=== PATIENT | female | born 1935 | race Caucasian/White ===

== ENCOUNTER 2017-04-25 16:17 | Inpatient (IN) ==
[2017-04-25] MEDS ORDERED: MAGNESIUM HYDROXIDE SUSP 30 ML UDCUP PO PRN (16:18)
[2017-04-25] MEDS ORDERED: DEXTROSE 50% 25 GM/50 ML VIAL IV PRN (16:18)
[2017-04-25] MEDS ORDERED: MORPHINE 2 MG/1 ML SYRINGE IV PRN (16:18)
[2017-04-25] MEDS ORDERED: GLUCAGON 1 MG VIAL IM PRN (16:18)
[2017-04-25] MEDS ORDERED: ACETAMINOPHEN 325 MG TABLET PO PRN (16:18)
[2017-04-25] MEDS: ENOXAPARIN 30 MG/0.3 ML SYRINGE SUBCUT SCH (18:24)
[2017-04-25] MEDS: SODIUM CHLORIDE 0.45% 1,000 ML IV SCH (18:26)
[2017-04-25 19:21] LABS: Basophils # 0.1 10*3/uL (0.0-0.2); Basophils % 0.7 % (0.0-0.8); Eosinophils # 0.3 10*3/uL (0.0-0.87); Eosinophils % 2.9 % (0.00-10.9); Hematocrit 27.9 VOL% (35.7-47.0); Hemoglobin 7.6 GM/DL (12.0-16.0); Immature Granulocytes % 0.9 %; Immature Granulocytes Absolute 0.09 #; Lymphocytes # 2.4 10*3/uL (1.4-4.0); Lymphocytes % 23.7 % (21.3-54.2); Mean Corpuscular HGB Conc 27.2 GM/DL (32-36); Mean Corpuscular Hemoglobin 19 PG (27-34); Mean Corpuscular Volume 69.4 FL (87-102); Mean Platelet Volume 9.5 FL (9.6-12.0); Monocytes # 0.8 10*3/uL (0.11-0.8); Monocytes % 7.5 % (1.7-12.7); NRBC # 0.05 10*3/uL; Neutrophils # 6.5 10*3/uL (1.4-7.4); Neutrophils % 64.3 % (38.7-73.9); Platelet Count 426 T/CUMM (130-400); Red Blood Count 4.02 MC/CUMM (3.8-5.5); Red Cell Distribution Width 19.2 % (9.3-17.3); White Blood Count 10.1 T/CUMM (4-12)
[2017-04-25 19:24] LABS: Alanine Aminotransferase < 9 U/L (13-56); Albumin 3.8 G/DL (3.4-5.0); Alkaline Phosphatase 181 U/L (45-117); Aspartate Amino Transferase 13 U/L (0-37); Blood Urea Nitrogen 33 MG/DL (7-18); Calcium 9.8 MG/DL (8.5-10.1); Glucose 132 MG/DL (74-106); Osmolality,Calculated 287.4 MOS/KG (273-304); Potassium 3.6 MMOL/L (3.5-5.1); Sodium 140 MMOL/L (136-145); Total Protein 6.8 G/DL (6.4-8.3)
[2017-04-25 19:44] LABS: Hypochromasia 3+; Microcytosis 3+; Platelet Estimate Normal; Tear Drop Cells Few
[2017-04-25] MEDS: DOCUSATE SODIUM 100 MG CAPSULE PO SCH (20:46)
[2017-04-26] MEDS: ONDANSETRON 4 MG/2 ML VIAL IV PRN (00:19)
[2017-04-26 01:08] LABS: Apearance,Urine Slightly Hazy (Clear); Bacteria,Urine Few /HPF (Few); Bilirubin,Urine Negative (Negative); Blood, Urine Negative (Negative); Glucose,Urine (UA) >=500 mg/dL (Negative); Hyaline Casts,Urine 2 /LPF (0-3); Ketones,Urine 5 mg/dL (Negative); Mucus,Urine Occasional /LPF (Occasional); Nitrite,Urine Positive (Negative); Protein,Urine Negative; RBC,Urine 1 /HPF (0-4); Squamous Epithelial Cell,Urine Occasional /HPF (0-10); Urine Color Yellow (Yellow); Urine Specific Gravity 1.014 (1.001-1.035); Urine Urobilinogen < 2.0 EU/DL (0.2-1.0); WBC,Urine 11 /HPF (0-6)
[2017-04-26] MEDS: clonazePAM 0.5 MG TABLET PO SCH ×2 (08:47→21:46)
[2017-04-26] MEDS: CARBIDOPA/LEVODOPA 25-100 MG TABLET PO SCH ×3 (08:47→21:31)
[2017-04-26] MEDS: FEBUXOSTAT 80 MG TABLET PO SCH (08:47)
[2017-04-26] MEDS: PANTOPRAZOLE 40 MG TABLET PO SCH (08:47)
[2017-04-26] MEDS: tiZANidine 4 MG TABLET PO SCH ×3 (08:47→21:31)
[2017-04-26] MEDS: RASAGILINE 0.5 MG TABLET PO SCH (08:47)
[2017-04-26] MEDS: DILTIAZEM CD 180 MG CAPSULE PO SCH (08:48)
[2017-04-26] MEDS: DOCUSATE SODIUM 100 MG CAPSULE PO SCH ×2 (08:50→21:31)
[2017-04-26] MEDS: FUROSEMIDE 20 MG TABLET PO SCH (08:51)
[2017-04-26] MEDS: LOSARTAN 50 MG TABLET PO SCH (08:52)
[2017-04-26] MEDS: rOPINIRole 0.25 MG TABLET PO SCH ×3 (08:52→21:31)
[2017-04-26] MEDS: SELENIUM 200 MCG TABLET PO SCH (08:52)
[2017-04-26] MEDS: sitaGLIPtin 25 MG TABLET PO SCH (08:52)
[2017-04-26] MEDS: ESCITALOPRAM 10 MG TABLET PO SCH (08:54)
[2017-04-26] MEDS ORDERED: NON-FORMULARY MEDICATION (Omeprazole [Omeprazole] 20 MG) PO SCH (09:00)
[2017-04-26 10:10] LABS: Folate 13.6 NG/ML (5.4-24.0)
[2017-04-26] MEDS ORDERED: ceFAZolin 2,000 MG in PREMIX 1 EACH IV ONE (12:00)
[2017-04-26] MEDS ORDERED: DEXAMETHASONE 10 MG/1 ML VIAL ONE (13:58)
[2017-04-26] MEDS ORDERED: TISSUE ADHESIVE 1 EACH APPLICATOR TOP ONE (13:58)
[2017-04-26] MEDS ORDERED: LIDOCAINE 1% 5 ML VIAL ONE (13:58)
[2017-04-26] MEDS ORDERED: DEXAMETHASONE 4 MG/1 ML VIAL ONE (13:59)
[2017-04-26] MEDS: SODIUM CHLORIDE 0.45% 1,000 ML IV SCH (14:27)
[2017-04-26] MEDS: LACTATED RINGERS 1,000 ML IV SCH ×2 (16:25→20:00)
[2017-04-26] MEDS ORDERED: ceFAZolin 1,000 MG VIAL ONE (16:36)
[2017-04-26] MEDS ORDERED: ONDANSETRON 4 MG/2 ML VIAL IV PRN (17:18)
[2017-04-26] MEDS ORDERED: HYDROmorphone 2 MG/1 ML VIAL IV PRN (17:18)
[2017-04-26] MEDS ORDERED: fentaNYL 100 MCG/2 ML VIAL ONE (18:13)
[2017-04-26] MEDS ORDERED: PROPOFOL 200 MG/20 ML VIAL IV ONE (18:13)
[2017-04-26] MEDS: ATORVASTATIN 40 MG TABLET PO SCH (21:31)
[2017-04-26] MEDS: ENOXAPARIN 30 MG/0.3 ML SYRINGE SUBCUT SCH (21:33)
[2017-04-27 06:58] LABS: Basophils % 0.5 % (0.0-0.8); Eosinophils # 0.5 10*3/uL (0.0-0.87); Eosinophils % 5.9 % (0.00-10.9); Hematocrit 25.4 VOL% (35.7-47.0); Immature Granulocytes % 0.7 %; Immature Granulocytes Absolute 0.06 #; Lymphocytes # 1.3 10*3/uL (1.4-4.0); Lymphocytes % 14.7 % (21.3-54.2); Mean Corpuscular HGB Conc 26.8 GM/DL (32-36); Mean Corpuscular Hemoglobin 18 PG (27-34); Mean Corpuscular Volume 68.6 FL (87-102); Mean Platelet Volume 9.7 FL (9.6-12.0); Monocytes # 0.5 10*3/uL (0.11-0.8); Monocytes % 6.1 % (1.7-12.7); NRBC # 0.03 10*3/uL; Neutrophils # 6.4 10*3/uL (1.4-7.4); Neutrophils % 72.1 % (38.7-73.9); Platelet Count 354 T/CUMM (130-400); Red Cell Distribution Width 19.1 % (9.3-17.3); White Blood Count 8.9 T/CUMM (4-12)
[2017-04-27 07:01] LABS: Hemoglobin 6.8 GM/DL (12.0-16.0)
[2017-04-27 07:16] LABS: Giant Platelets Few; Hypochromasia 1+; Microcytosis Slight; Ovalocytes Slight; Platelet Estimate Adequate
[2017-04-27] MEDS: clonazePAM 0.5 MG TABLET PO SCH ×2 (10:17→21:12)
[2017-04-27] MEDS: LOSARTAN 50 MG TABLET PO SCH (10:17)
[2017-04-27] MEDS: sitaGLIPtin 25 MG TABLET PO SCH (10:17)
[2017-04-27] MEDS: ESCITALOPRAM 10 MG TABLET PO SCH (10:17)
[2017-04-27] MEDS: DILTIAZEM CD 180 MG CAPSULE PO SCH (10:17)
[2017-04-27] MEDS: DOCUSATE SODIUM 100 MG CAPSULE PO SCH ×2 (10:17→21:12)
[2017-04-27] MEDS: RASAGILINE 0.5 MG TABLET PO SCH (10:17)
[2017-04-27] MEDS: FUROSEMIDE 20 MG TABLET PO SCH (10:17)
[2017-04-27] MEDS: FEBUXOSTAT 80 MG TABLET PO SCH (10:18)
[2017-04-27] MEDS: tiZANidine 4 MG TABLET PO SCH ×3 (10:18→21:12)
[2017-04-27] MEDS: PANTOPRAZOLE 40 MG TABLET PO SCH (10:18)
[2017-04-27] MEDS: CARBIDOPA/LEVODOPA 25-100 MG TABLET PO SCH ×3 (10:18→21:13)
[2017-04-27] MEDS: rOPINIRole 0.25 MG TABLET PO SCH ×3 (10:18→21:19)
[2017-04-27] MEDS: SELENIUM 200 MCG TABLET PO SCH (10:18)
[2017-04-27] MEDS: SODIUM CHLORIDE 0.45% 1,000 ML IV SCH (10:19)
[2017-04-27] MEDS ORDERED: SODIUM CHLORIDE 0.9% 1,000 ML IV PRN (15:25)
[2017-04-27] MEDS ORDERED: CYANOCOBALAMIN 1000 MCG/1 ML VIAL IM ONE (15:31)
[2017-04-27] MEDS: methylPREDNISolone SOD SUC 40 MG/1 ML VIAL IV SCH (17:04)
[2017-04-27] MEDS: ATORVASTATIN 40 MG TABLET PO SCH (21:12)
[2017-04-27] MEDS: ENOXAPARIN 30 MG/0.3 ML SYRINGE SUBCUT SCH (21:12)
[2017-04-27] MEDS: ONDANSETRON 4 MG/2 ML VIAL IV PRN (23:06)
[2017-04-28] MEDS: methylPREDNISolone SOD SUC 40 MG/1 ML VIAL IV SCH ×2 (04:15→15:21)
[2017-04-28 08:54] LABS: Hematocrit 35.1 VOL% (35.7-47.0)
[2017-04-28 08:55] LABS: Basophils % 0.2 % (0.0-0.8); Hematocrit 34.5 VOL% (35.7-47.0); Immature Granulocytes % 0.9 %; Immature Granulocytes Absolute 0.09 #; Lymphocytes # 0.9 10*3/uL (1.4-4.0); Lymphocytes % 9.4 % (21.3-54.2); Mean Corpuscular HGB Conc 29.9 GM/DL (32-36); Mean Corpuscular Hemoglobin 21 PG (27-34); Mean Corpuscular Volume 71.4 FL (87-102); Mean Platelet Volume 9.6 FL (9.6-12.0); Monocytes # 0.2 10*3/uL (0.11-0.8); Monocytes % 1.7 % (1.7-12.7); Neutrophils # 8.6 10*3/uL (1.4-7.4); Neutrophils % 87.8 % (38.7-73.9); Platelet Count 406 T/CUMM (130-400); Red Blood Count 4.83 MC/CUMM (3.8-5.5); Red Cell Distribution Width 21.4 % (9.3-17.3); White Blood Count 9.8 T/CUMM (4-12)
[2017-04-28] MEDS: SELENIUM 200 MCG TABLET PO SCH (08:56)
[2017-04-28] MEDS: FEBUXOSTAT 80 MG TABLET PO SCH (08:56)
[2017-04-28] MEDS: RASAGILINE 0.5 MG TABLET PO SCH (08:56)
[2017-04-28] MEDS: CARBIDOPA/LEVODOPA 25-100 MG TABLET PO SCH ×3 (08:57→21:40)
[2017-04-28] MEDS: DOCUSATE SODIUM 100 MG CAPSULE PO SCH ×2 (08:57→21:40)
[2017-04-28] MEDS: FUROSEMIDE 20 MG TABLET PO SCH (08:58)
[2017-04-28] MEDS: sitaGLIPtin 25 MG TABLET PO SCH (08:58)
[2017-04-28] MEDS: ESCITALOPRAM 10 MG TABLET PO SCH (08:58)
[2017-04-28] MEDS: DILTIAZEM CD 180 MG CAPSULE PO SCH (08:58)
[2017-04-28] MEDS: rOPINIRole 0.25 MG TABLET PO SCH ×3 (08:58→21:40)
[2017-04-28] MEDS: FERROUS SULFATE 325 MG TABLET PO SCH (08:58)
[2017-04-28] MEDS: PANTOPRAZOLE 40 MG TABLET PO SCH (08:59)
[2017-04-28] MEDS: clonazePAM 0.5 MG TABLET PO SCH ×2 (08:59→21:40)
[2017-04-28] MEDS: tiZANidine 4 MG TABLET PO SCH ×3 (09:00→21:40)
[2017-04-28 09:04] LABS: Calcium 9.6 MG/DL (8.5-10.1); Osmolality,Calculated 292.4 MOS/KG (273-304); Potassium 4.7 MMOL/L (3.5-5.1)
[2017-04-28] MEDS: SODIUM CHLORIDE 0.45% 1,000 ML IV SCH (09:05)
[2017-04-28 09:07] LABS: Hemoglobin 10.1 GM/DL (12.0-16.0); Hemoglobin 10.3 GM/DL (12.0-16.0)
[2017-04-28] MEDS: ATORVASTATIN 40 MG TABLET PO SCH (21:40)
[2017-04-28] MEDS: ENOXAPARIN 30 MG/0.3 ML SYRINGE SUBCUT SCH (21:41)
[2017-04-29] MEDS: SODIUM CHLORIDE 0.45% 1,000 ML IV SCH ×2 (01:40→21:53)
[2017-04-29] MEDS: cefTRIAXone 500 MG in SYRINGE 1 EACH IV SCH (01:40)
[2017-04-29] MEDS: methylPREDNISolone SOD SUC 40 MG/1 ML VIAL IV SCH (04:20)
[2017-04-29 06:03] LABS: Basophils % 0.1 % (0.0-0.8); Hematocrit 37.1 VOL% (35.7-47.0); Hemoglobin 10.7 GM/DL (12.0-16.0); Immature Granulocytes % 1.1 %; Immature Granulocytes Absolute 0.23 #; Lymphocytes # 1.8 10*3/uL (1.4-4.0); Lymphocytes % 8.3 % (21.3-54.2); Mean Corpuscular HGB Conc 28.8 GM/DL (32-36); Mean Corpuscular Hemoglobin 21 PG (27-34); Mean Corpuscular Volume 72.3 FL (87-102); Mean Platelet Volume 9.6 FL (9.6-12.0); Monocytes # 0.6 10*3/uL (0.11-0.8); NRBC # 0.03 10*3/uL; Neutrophils # 18.6 10*3/uL (1.4-7.4); Neutrophils % 87.5 % (38.7-73.9); Platelet Count 496 T/CUMM (130-400); Red Blood Count 5.13 MC/CUMM (3.8-5.5); Red Cell Distribution Width 22.2 % (9.3-17.3); White Blood Count 21.3 T/CUMM (4-12)
[2017-04-29 06:26] LABS: Lymphocytes 12 % (20-55); Macrocytosis 2+; Platelet Estimate Adequate; Polychromasia Slight; Segmented Neutrophils 88 % (50-85); Target Cells Slight; Total Cells Counted 100
[2017-04-29 06:28] LABS: Calcium 10.6 MG/DL (8.5-10.1); Osmolality,Calculated 287.5 MOS/KG (273-304); Potassium 4.6 MMOL/L (3.5-5.1)
[2017-04-29] MEDS ORDERED: PROPOFOL 200 MG/20 ML VIAL IV ONE (09:00)
[2017-04-29] MEDS ORDERED: LIDOCAINE 100 MG/5 ML SYRINGE ONE (09:00)
[2017-04-29] MEDS: DILTIAZEM CD 180 MG CAPSULE PO SCH (10:43)
[2017-04-29] MEDS: RASAGILINE 0.5 MG TABLET PO SCH (10:43)
[2017-04-29] MEDS: DOCUSATE SODIUM 100 MG CAPSULE PO SCH ×2 (10:44→21:45)
[2017-04-29] MEDS: FERROUS SULFATE 325 MG TABLET PO SCH (10:44)
[2017-04-29] MEDS: PANTOPRAZOLE 40 MG TABLET PO SCH ×2 (10:44→21:46)
[2017-04-29] MEDS: ESCITALOPRAM 10 MG TABLET PO SCH (10:44)
[2017-04-29] MEDS: sitaGLIPtin 25 MG TABLET PO SCH (10:44)
[2017-04-29] MEDS: FUROSEMIDE 20 MG TABLET PO SCH (10:44)
[2017-04-29] MEDS: clonazePAM 0.5 MG TABLET PO SCH ×2 (10:44→21:46)
[2017-04-29] MEDS: rOPINIRole 0.25 MG TABLET PO SCH ×3 (10:45→21:44)
[2017-04-29] MEDS: tiZANidine 4 MG TABLET PO SCH ×3 (10:45→21:44)
[2017-04-29] MEDS: SELENIUM 200 MCG TABLET PO SCH (10:45)
[2017-04-29] MEDS: CARBIDOPA/LEVODOPA 25-100 MG TABLET PO SCH ×3 (10:45→21:44)
[2017-04-29] MEDS: FEBUXOSTAT 80 MG TABLET PO SCH (10:45)
[2017-04-29] MEDS ORDERED: TUBERCULIN SKIN TEST 0.1 ML SYRINGE INTRADERM ONE (12:00)
[2017-04-29] MEDS: ENOXAPARIN 30 MG/0.3 ML SYRINGE SUBCUT SCH (21:47)
[2017-04-29] MEDS: ATORVASTATIN 40 MG TABLET PO SCH (21:47)
[2017-04-30] MEDS: cefTRIAXone 500 MG in SYRINGE 1 EACH IV SCH (01:48)
[2017-04-30] MEDS ORDERED: GLUCAGON 1 MG VIAL IM PRN (07:34)
[2017-04-30] MEDS ORDERED: DEXTROSE 50% 25 GM/50 ML VIAL IV PRN (07:34)
[2017-04-30 08:26] VITALS: BP 160/98
[2017-04-30] MEDS: rOPINIRole 0.25 MG TABLET PO SCH (08:42)
[2017-04-30] MEDS: tiZANidine 4 MG TABLET PO SCH (08:42)
[2017-04-30] MEDS: FUROSEMIDE 20 MG TABLET PO SCH (08:42)
[2017-04-30] MEDS: CARBIDOPA/LEVODOPA 25-100 MG TABLET PO SCH (08:42)
[2017-04-30] MEDS: clonazePAM 0.5 MG TABLET PO SCH (08:42)
[2017-04-30] MEDS: RASAGILINE 0.5 MG TABLET PO SCH (08:44)
[2017-04-30] MEDS: FEBUXOSTAT 80 MG TABLET PO SCH (08:45)
[2017-04-30] MEDS: DOCUSATE SODIUM 100 MG CAPSULE PO SCH (08:45)
[2017-04-30] MEDS: PANTOPRAZOLE 40 MG TABLET PO SCH (08:45)
[2017-04-30] MEDS: FERROUS SULFATE 325 MG TABLET PO SCH (08:45)
[2017-04-30] MEDS: ESCITALOPRAM 10 MG TABLET PO SCH (08:47)
[2017-04-30] MEDS: sitaGLIPtin 25 MG TABLET PO SCH (08:47)
[2017-04-30] MEDS: SELENIUM 200 MCG TABLET PO SCH (08:48)
[2017-04-30] MEDS: DILTIAZEM CD 180 MG CAPSULE PO SCH (08:48)
[2017-04-30] MEDS ORDERED: ENOXAPARIN 40 MG/0.4 ML SYRINGE SUBCUT SCH (21:00)
== END 2017-04-30 12:00 | DRG 516 ==
LOC: N.2E 17:59
PROVIDERS: ADMIT Family Medicine; ATTEND Family Medicine

== ENCOUNTER 2020-04-03 19:30 | Inpatient (IN) ==
[2020-04-03] MEDS ORDERED: SODIUM CHLORIDE 0.9% 500 ML IV STA (19:55)
[2020-04-03] MEDS ORDERED: ALUM/MAG/SIMETH/LIDO VISC 1:1 30 ML BOTTLE PO STA (19:55)
[2020-04-03] MEDS ORDERED: ONDANSETRON 4 MG/2 ML VIAL IV STA (19:55)
[2020-04-03] MEDS ORDERED: ASPIRIN 325 MG TABLET PO STA (19:55)
[2020-04-03] MEDS ORDERED: VANCOMYCIN INJ 1,000 MG in SODIUM CHLORIDE 0.9% 250 ML IV STA (20:12)
[2020-04-03 20:40] LABS: Basophils % 0.4 % (0.0-0.8); Eosinophils % 0.4 % (0.00-10.9); Hematocrit 41.6 VOL% (35.7-47.0); Immature Granulocytes % 0.5 %; Immature Granulocytes Absolute 0.03 #; Lymphocytes # 1.4 10*3/uL (1.4-4.0); Lymphocytes % 24.4 % (21.3-54.2); Mean Corpuscular HGB Conc 33.7 GM/DL (32-36); Monocytes % 9.3 % (1.7-12.7); Platelet Count 173 T/CUMM (130-400); Red Blood Count 4.78 MC/CUMM (3.8-5.5); Red Cell Distribution Width 14.6 % (9.3-17.3); White Blood Count 5.6 T/CUMM (4-12)
[2020-04-03 20:52] LABS: PT Patient Result 10.8 SECS (9.8-11.9)
[2020-04-03 21:07] LABS: Albumin 3.6 G/DL (3.4-5.0); Bilirubin,Total 0.6 MG/DL (0.2-1.0); Ferritin 856.8 ng/ml (8-252); Osmolality,Calculated 288.5 MOS/KG (273-304); Potassium 3.2 MMOL/L (3.5-5.1); Total Protein 7.2 G/DL (6.4-8.3)
[2020-04-03] MEDS ORDERED: MAGNESIUM SULF RIDER 2 GM in PREMIX 1 EACH IV STA (21:26)
[2020-04-03] MEDS ORDERED: POTASSIUM CHLORIDE 20 MEQ TABLET PO STA (21:26)
[2020-04-03 21:40] LABS: Bacteria,Urine Moderate /HPF (Few); Bilirubin,Urine Negative (Negative); Blood, Urine Negative (Negative); Glucose,Urine (UA) 50 mg/dL (Negative); Ketones,Urine Negative (Negative); Nitrite,Urine Positive (Negative); Protein,Urine Negative; Squamous Epithelial Cell,Urine Occasional /HPF (0-10); Urine Appearance CLEAR (Clear); Urine Color Yellow (Yellow); Urine Specific Gravity 1.009 (1.001-1.035); Urine Urobilinogen < 2.0 EU/DL (0.2-1.0); WBC,Urine 14 /HPF (0-6)
[2020-04-04] MEDS ORDERED: GLUCAGON 1 MG VIAL IM PRN (00:28)
[2020-04-04] MEDS ORDERED: ONDANSETRON 4 MG/2 ML VIAL IV PRN ×2 (00:28→15:00)
[2020-04-04] MEDS ORDERED: DEXTROSE 50% 25 GM/50 ML VIAL IV PRN (00:28)
[2020-04-04 00:54] LABS: Troponin I < 0.015 NG/ML (0.00-0.045)
[2020-04-04] MEDS: SODIUM CHLORIDE 0.9% 1,000 ML IV SCH ×4 (02:03→17:39)
[2020-04-04 03:04] LABS: Albumin 3.6 G/DL (3.4-5.0); Bilirubin,Total 0.4 MG/DL (0.2-1.0); Calcium 9.3 MG/DL (8.5-10.1); Osmolality,Calculated 293.7 MOS/KG (273-304); Potassium 4.3 MMOL/L (3.5-5.1); Risk Ratio 3.31; Total Protein 7.4 G/DL (6.4-8.3); VLDL CHOLESTEROL 51.2 MG/DL
[2020-04-04 03:07] LABS: Basophils % 0.2 % (0.0-0.8); Eosinophils % 0.5 % (0.00-10.9); Hematocrit 43.9 VOL% (35.7-47.0); Hemoglobin 14.3 GM/DL (12.0-16.0); Immature Granulocytes % 0.3 %; Immature Granulocytes Absolute 0.02 #; Lymphocytes # 1.4 10*3/uL (1.4-4.0); Lymphocytes % 22.6 % (21.3-54.2); Mean Corpuscular HGB Conc 32.6 GM/DL (32-36); Mean Corpuscular Volume 88.2 FL (87-102); Mean Platelet Volume 9.7 FL (9.6-12.0); Monocytes % 9.3 % (1.7-12.7); Neutrophils % 67.1 % (38.7-73.9); Platelet Count 177 T/CUMM (130-400); Red Blood Count 4.98 MC/CUMM (3.8-5.5); Red Cell Distribution Width 14.6 % (9.3-17.3); White Blood Count 6.3 T/CUMM (4-12)
[2020-04-04] MEDS: INSULIN REGULAR 100 UNIT/ML SUBCUT SCH ×3 (06:53→17:40)
[2020-04-04] MEDS ORDERED: HYDROCORTISONE 2.5% RECTAL CREAM 30 GM TUBE TOP PRN (07:47)
[2020-04-04] MEDS ORDERED: hydrOXYzine HCL 25 MG TABLET PO PRN (07:47)
[2020-04-04] MEDS: LEVOFLOXACIN INJ 250 MG in PREMIX 1 EACH IV SCH (09:08)
[2020-04-04] MEDS: PANTOPRAZOLE 40 MG TABLET PO SCH (09:09)
[2020-04-04] MEDS: DOCUSATE SODIUM 100 MG CAPSULE PO SCH ×2 (09:09→21:35)
[2020-04-04] MEDS: ENOXAPARIN 30 MG/0.3 ML SYRINGE SUBCUT SCH (10:50)
[2020-04-04] MEDS: TRIAMCINOLONE 0.1% CREAM 15 GM TUBE TOP SCH ×2 (10:50→21:35)
[2020-04-04] MEDS: clonazePAM 0.5 MG TABLET PO SCH ×2 (10:51→21:36)
[2020-04-04] MEDS: FERROUS SULFATE 325 MG TABLET PO SCH ×2 (10:51→21:38)
[2020-04-04] MEDS: FEBUXOSTAT 80 MG TABLET PO SCH (10:51)
[2020-04-04] MEDS: RASAGILINE 0.5 MG TABLET PO SCH (10:51)
[2020-04-04] MEDS: MULTIVITAMIN (CENTRUM) TABLET PO SCH (10:52)
[2020-04-04] MEDS: CARBIDOPA/LEVODOPA 25-100 MG TABLET PO SCH ×3 (10:52→21:36)
[2020-04-04] MEDS: DILTIAZEM CD 240 MG CAPSULE PO SCH (10:53)
[2020-04-04] MEDS: SELENIUM 200 MCG TABLET PO SCH (10:53)
[2020-04-04] MEDS: sitaGLIPtin 25 MG TABLET PO SCH (10:53)
[2020-04-04] MEDS: MONTELUKAST 10 MG TABLET PO SCH (10:54)
[2020-04-04] MEDS: FUROSEMIDE 20 MG TABLET PO SCH (10:54)
[2020-04-04] MEDS: LOSARTAN 50 MG TABLET PO SCH (10:54)
[2020-04-04] MEDS: ESCITALOPRAM 10 MG TABLET PO SCH (10:54)
[2020-04-04] MEDS: OMEPRAZOLE PO SCH (10:55)
[2020-04-04] MEDS: traMADol 50 MG TABLET PO PRN ×2 (14:10→21:38)
[2020-04-04] MEDS ORDERED: diphenhydrAMINE 50 MG/1 ML VIAL IV PRN ×2 (15:00)
[2020-04-04] MEDS ORDERED: SODIUM CHLORIDE 0.9% 200 ML IV SCH (15:00)
[2020-04-04] MEDS ORDERED: ACETAMINOPHEN 325 MG TABLET PO PRN (15:00)
[2020-04-04] MEDS ORDERED: MECLIZINE 25 MG TABLET PO PRN (15:00)
[2020-04-04] MEDS ORDERED: methylPREDNISolone SOD SUC 125 MG/2 ML VIAL IV PRN (15:00)
[2020-04-04] MEDS ORDERED: DEXAMETHASONE 4 MG TABLET PO ONE (15:00)
[2020-04-04] MEDS ORDERED: BAMLANIVIMAB 700 MG in SODIUM CHLORIDE 0.9% 250 ML IV ONE (15:30)
[2020-04-04] MEDS: ACETAMINOPHEN 325 MG TABLET PO PRN (21:35)
[2020-04-04] MEDS: PRAMIPEXOLE 0.25 MG TABLET PO SCH (21:38)
[2020-04-04] MEDS: ATORVASTATIN 20 MG TABLET PO SCH (21:38)
[2020-04-05] MEDS: INSULIN REGULAR 100 UNIT/ML SUBCUT SCH ×4 (00:25→18:39)
[2020-04-05] MEDS: SODIUM CHLORIDE 0.9% 1,000 ML IV SCH ×2 (02:00→22:29)
[2020-04-05 05:46] LABS: Hematocrit 41.6 VOL% (35.7-47.0); Hemoglobin 13.8 GM/DL (12.0-16.0); Immature Granulocytes % 0.3 %; Immature Granulocytes Absolute 0.01 #; Lymphocytes # 0.7 10*3/uL (1.4-4.0); Lymphocytes % 18.9 % (21.3-54.2); Mean Corpuscular HGB Conc 33.2 GM/DL (32-36); Mean Corpuscular Volume 87.9 FL (87-102); Mean Platelet Volume 9.5 FL (9.6-12.0); Monocytes % 7.9 % (1.7-12.7); Neutrophils % 72.9 % (38.7-73.9); Platelet Count 197 T/CUMM (130-400); Red Blood Count 4.73 MC/CUMM (3.8-5.5); Red Cell Distribution Width 14.1 % (9.3-17.3); White Blood Count 3.9 T/CUMM (4-12)
[2020-04-05] MEDS: RASAGILINE 0.5 MG TABLET PO SCH (12:09)
[2020-04-05] MEDS: DILTIAZEM CD 240 MG CAPSULE PO SCH (12:09)
[2020-04-05] MEDS: ENOXAPARIN 30 MG/0.3 ML SYRINGE SUBCUT SCH (12:09)
[2020-04-05] MEDS: MULTIVITAMIN (CENTRUM) TABLET PO SCH (12:09)
[2020-04-05] MEDS: LOSARTAN 50 MG TABLET PO SCH (12:10)
[2020-04-05] MEDS: FERROUS SULFATE 325 MG TABLET PO SCH ×2 (12:10→22:30)
[2020-04-05] MEDS: sitaGLIPtin 25 MG TABLET PO SCH (12:10)
[2020-04-05] MEDS: TRIAMCINOLONE 0.1% CREAM 15 GM TUBE TOP SCH ×2 (12:10→22:31)
[2020-04-05] MEDS: clonazePAM 0.5 MG TABLET PO SCH ×2 (12:10→22:29)
[2020-04-05] MEDS: DOCUSATE SODIUM 100 MG CAPSULE PO SCH ×2 (12:10→22:30)
[2020-04-05] MEDS: PANTOPRAZOLE 40 MG TABLET PO SCH (12:11)
[2020-04-05] MEDS: ESCITALOPRAM 10 MG TABLET PO SCH (12:11)
[2020-04-05] MEDS: OMEPRAZOLE PO SCH (12:11)
[2020-04-05] MEDS: FEBUXOSTAT 80 MG TABLET PO SCH (12:11)
[2020-04-05] MEDS: MONTELUKAST 10 MG TABLET PO SCH (12:11)
[2020-04-05] MEDS: SELENIUM 200 MCG TABLET PO SCH (12:11)
[2020-04-05] MEDS: CARBIDOPA/LEVODOPA 25-100 MG TABLET PO SCH ×3 (12:11→22:30)
[2020-04-05] MEDS: FUROSEMIDE 20 MG TABLET PO SCH (12:11)
[2020-04-05] MEDS ORDERED: guaiFENesin 200 MG/10 ML UDCUP PO PRN (16:07)
[2020-04-05] MEDS: PRAMIPEXOLE 0.25 MG TABLET PO SCH (22:30)
[2020-04-05] MEDS: ACETAMINOPHEN 325 MG TABLET PO PRN (22:30)
[2020-04-05] MEDS: ATORVASTATIN 20 MG TABLET PO SCH (22:31)
[2020-04-06] MEDS: INSULIN REGULAR 100 UNIT/ML SUBCUT SCH ×3 (00:32→17:24)
[2020-04-06 06:11] LABS: Basophils % 0.2 % (0.0-0.8); Eosinophils % 0.2 % (0.00-10.9); Hematocrit 40.9 VOL% (35.7-47.0); Hemoglobin 13.5 GM/DL (12.0-16.0); Immature Granulocytes % 0.7 %; Immature Granulocytes Absolute 0.04 #; Lymphocytes # 1.4 10*3/uL (1.4-4.0); Lymphocytes % 25.3 % (21.3-54.2); Mean Corpuscular Volume 87.8 FL (87-102); Mean Platelet Volume 9.7 FL (9.6-12.0); Neutrophils % 61.6 % (38.7-73.9); Platelet Count 204 T/CUMM (130-400); Red Blood Count 4.66 MC/CUMM (3.8-5.5); Red Cell Distribution Width 14.1 % (9.3-17.3); White Blood Count 5.7 T/CUMM (4-12)
[2020-04-06] MEDS: LEVOFLOXACIN INJ 250 MG in PREMIX 1 EACH IV SCH (10:43)
[2020-04-06] MEDS: sitaGLIPtin 25 MG TABLET PO SCH (10:44)
[2020-04-06] MEDS: SELENIUM 200 MCG TABLET PO SCH (10:44)
[2020-04-06] MEDS: ENOXAPARIN 30 MG/0.3 ML SYRINGE SUBCUT SCH (10:44)
[2020-04-06] MEDS: traMADol 50 MG TABLET PO PRN (10:45)
[2020-04-06] MEDS: RASAGILINE 0.5 MG TABLET PO SCH (10:45)
[2020-04-06] MEDS: DOCUSATE SODIUM 100 MG CAPSULE PO SCH (10:45)
[2020-04-06] MEDS: DILTIAZEM CD 240 MG CAPSULE PO SCH (10:46)
[2020-04-06] MEDS: MONTELUKAST 10 MG TABLET PO SCH (10:46)
[2020-04-06] MEDS: PANTOPRAZOLE 40 MG TABLET PO SCH (10:47)
[2020-04-06] MEDS: CARBIDOPA/LEVODOPA 25-100 MG TABLET PO SCH ×2 (10:47→14:53)
[2020-04-06] MEDS: FUROSEMIDE 20 MG TABLET PO SCH (10:47)
[2020-04-06] MEDS: FERROUS SULFATE 325 MG TABLET PO SCH (10:48)
[2020-04-06] MEDS: LOSARTAN 50 MG TABLET PO SCH (10:48)
[2020-04-06] MEDS: ESCITALOPRAM 10 MG TABLET PO SCH (10:48)
[2020-04-06] MEDS: FEBUXOSTAT 80 MG TABLET PO SCH (10:48)
[2020-04-06] MEDS: MULTIVITAMIN (CENTRUM) TABLET PO SCH (10:49)
[2020-04-06] MEDS: TRIAMCINOLONE 0.1% CREAM 15 GM TUBE TOP SCH (10:49)
[2020-04-06] MEDS: clonazePAM 0.5 MG TABLET PO SCH (10:49)
[2020-04-06] MEDS: OMEPRAZOLE PO SCH (11:02)
[2020-04-06 11:40] VITALS: BP 130/95
[2020-04-06] MEDS: SODIUM CHLORIDE 0.9% 1,000 ML IV SCH (13:01)
== END 2020-04-06 23:55 | DRG 177 ==
LOC: EDBD → EDUNIT# → N.ED 19:30 → N.EDINP 22:21 → N.2E 22:46
PROVIDERS: ADMIT Family Medicine; ATTEND Family Medicine

== ENCOUNTER 2022-03-03 09:19 | Inpatient (IN) ==
[2022-03-03] MEDS ORDERED: LACTATED RINGERS 2,400 ML IV ONE (09:41)
[2022-03-03] MEDS ORDERED: ETOMIDATE 20 MG/10 ML VIAL IV STA (09:43)
[2022-03-03] MEDS ORDERED: ROCURONIUM 100 MG/10 ML VIAL IV STA (09:43)
[2022-03-03] MEDS ORDERED: NOREPINEPHRINE 4 MG/4 ML VIAL IV ONE (09:46)
[2022-03-03] MEDS ORDERED: EPINEPHrine 1 MG/10 ML SYRINGE ONE (09:47)
[2022-03-03] MEDS: NOREPINEPHRINE DRIP 8 MG/250 ML PREMIX IV PRN ×2 (09:51→18:05)
[2022-03-03 09:53] LABS: Basophils # 0.2 10*3/uL (0.0-0.2); Basophils % 0.9 % (0.0-0.8); Hematocrit 39.2 VOL% (35.7-47.0); Hemoglobin 12.4 GM/DL (12.0-16.0); Immature Granulocytes % 0.3 %; Immature Granulocytes Absolute 0.07 #; Lymphocytes # 0.4 10*3/uL (1.4-4.0); Lymphocytes % 1.7 % (21.3-54.2); Mean Corpuscular HGB Conc 31.6 GM/DL (32-36); Mean Corpuscular Volume 90.7 FL (87-102); Mean Platelet Volume 11.9 FL (9.6-12.0); Monocytes # 0.4 10*3/uL (0.11-0.8); Monocytes % 1.8 % (1.7-12.7); Neutrophils % 95.3 % (38.7-73.9); Red Blood Count 4.32 MC/CUMM (3.8-5.5); Red Cell Distribution Width 14.5 % (9.3-17.3); White Blood Count 21.5 T/CUMM (4-12)
[2022-03-03 09:54] LABS: Platelet Count 50 T/CUMM (130-400)
[2022-03-03 10:00] LABS: INR 1.3; Partial Thromboplastin Time 36.3 SECS (23.7-32.9)
[2022-03-03 10:09] LABS: Alanine Aminotransferase < 9 U/L (13-56); Albumin 2.3 G/DL (3.4-5.0); Alkaline Phosphatase 376 U/L (45-117); Aspartate Amino Transferase 53 U/L (0-37); Blood Urea Nitrogen 100 MG/DL (7-18); Calcium 8.9 MG/DL (8.5-10.1); Carbon Dioxide 20 MMOL/L (21-32); Chloride 102 MMOL/L (98-107); Glucose 130 MG/DL (74-106); Osmolality,Calculated 307.7 MOS/KG (273-304); Potassium 3.3 MMOL/L (3.5-5.1); Sodium 138 MMOL/L (136-145); Total Protein 5.2 G/DL (6.4-8.2)
[2022-03-03 10:39] LABS: Mucus,Urine Occasional /LPF (Occasional); RBC,Urine 53 /HPF (0-4)
[2022-03-03 10:41] LABS: Arterial Base Excess iSTAT -10 MMOL/L (-2.5-2.5); Arterial Bicarbonate iSTAT 19.3 MMOL/L (20-26); Arterial O2 Saturation iSTAT 99 % (95-100); Arterial PCO2 iSTAT 56 MM HG (35-48); Arterial PO2 iSTAT 196 MM HG (80-95); Arterial Total CO2 iSTAT 21 MMO/L (23-27); Arterial pH iSTAT 7.147 (7.35-7.45)
[2022-03-03 10:41] LABS: Urine Appearance Slightly Cloudy (Clear); Urine Color Dark yellow (Yellow)
[2022-03-03 10:42] LABS: Bilirubin,Urine Small mg/dL (Negative); Blood, Urine Moderate mg/dL (Negative); Glucose,Urine (UA) Negative (Negative); Ketones,Urine Negative (Negative); Nitrite,Urine Negative (Negative); Protein,Urine >=300 mg/dL (Negative); Urine Urobilinogen 0.2 eU/dL (<2.0)
[2022-03-03 10:48] LABS: Band Neutrophils 6 % (0-10); Lymphocytes 2 % (20-55); Platelet Estimate Decreased; Total Cells Counted 100
[2022-03-03] MEDS ORDERED: VANCOMYCIN INJ 1,000 MG in SODIUM CHLORIDE 0.9% 250 ML IV STA (11:40)
[2022-03-03] MEDS ORDERED: MEROPENEM 1,000 MG in SODIUM CHLORIDE 0.9% 100 ML IV ONE ×2 (11:41→12:00)
[2022-03-03] MEDS ORDERED: HYDROCORTISONE 100 MG VIAL IV STA (11:57)
[2022-03-03] MEDS ORDERED: MIDAZOLAM 2 MG/2 ML VIAL IV ONE (12:49)
[2022-03-03] MEDS ORDERED: MIDAZOLAM 10 MG/2 ML VIAL ONE (12:50)
[2022-03-03] MEDS ORDERED: ALBUTEROL 2.5 MG/3 ML NEB RESP TX PRN (13:06)
[2022-03-03] MEDS ORDERED: ALBUTEROL/IPRATROPIUM 3 ML NEB RESP TX PRN (13:08)
[2022-03-03] MEDS ORDERED: ONDANSETRON 4 MG/2 ML VIAL IV PRN (13:08)
[2022-03-03] MEDS: LACTATED RINGERS 1,000 ML IV SCH ×2 (14:30→22:22)
[2022-03-03] MEDS: LEVOFLOXACIN INJ 750 MG/150 ML PREMIX IV SCH (15:00)
[2022-03-03] MEDS: HYDROCORTISONE 100 MG VIAL IV SCH (17:05)
[2022-03-03] MEDS: INSULIN LISPRO 100 UNIT/ML SUBCUT SCH (18:00)
[2022-03-03] MEDS: PANTOPRAZOLE 40 MG VIAL IV SCH (20:07)
[2022-03-03] MEDS ORDERED: ENOXAPARIN 30 MG/0.3 ML SYRINGE SUBCUT SCH (21:00)
[2022-03-04] MEDS: INSULIN LISPRO 100 UNIT/ML SUBCUT SCH ×4 (00:05→18:06)
[2022-03-04] MEDS: HYDROCORTISONE 100 MG VIAL IV SCH ×3 (00:08→17:40)
[2022-03-04] MEDS: NOREPINEPHRINE DRIP 8 MG/250 ML PREMIX IV PRN ×2 (01:43→11:26)
[2022-03-04] MEDS: LACTATED RINGERS 1,000 ML IV SCH ×3 (01:43→17:20)
[2022-03-04 03:22] LABS: ABG Base Excess -6.7 MMOL/L (-2.5-2.5); ABG Oxygen Saturation 98.4 % (95-100); ABG PCO2 36.4 MM HG (35-48); ABG PH 7.321 (7.35-7.45); ABG TCO2 16.7 MMOL/L (23-27)
[2022-03-04 03:25] LABS: Basophils # 0.2 10*3/uL (0.0-0.2); Basophils % 0.7 % (0.0-0.8); Hematocrit 39.1 VOL% (35.7-47.0); Hemoglobin 12.8 GM/DL (12.0-16.0); Immature Granulocytes % 0.8 %; Immature Granulocytes Absolute 0.22 #; Lymphocytes # 0.4 10*3/uL (1.4-4.0); Lymphocytes % 1.4 % (21.3-54.2); Mean Corpuscular HGB Conc 32.7 GM/DL (32-36); Mean Corpuscular Volume 90.3 FL (87-102); Mean Platelet Volume 12.7 FL (9.6-12.0); Monocytes # 0.7 10*3/uL (0.11-0.8); Monocytes % 2.4 % (1.7-12.7); NRBC # 0.02 10*3/uL; Neutrophils % 94.7 % (38.7-73.9); Red Blood Count 4.33 MC/CUMM (3.8-5.5); Red Cell Distribution Width 14.6 % (9.3-17.3); White Blood Count 26.9 T/CUMM (4-12)
[2022-03-04 03:29] LABS: Platelet Count 31 T/CUMM (130-400)
[2022-03-04 03:36] LABS: Calcium 8.7 MG/DL (8.5-10.1); Potassium 3.9 MMOL/L (3.5-5.1)
[2022-03-04 03:47] LABS: Band Neutrophils 3 % (0-10); Lymphocytes 1 % (20-55); Platelet Estimate Decreased; Thyroid Stimulating Hormone 0.324 uIU/ml (0.358-3.74); Total Cells Counted 100
[2022-03-04] MEDS ORDERED: MAGNESIUM SULF RIDER 4 GM/100 ML PREMIX IV PRN (03:59)
[2022-03-04] MEDS: MAGNESIUM SULF RIDER 2 GM/50 ML PREMIX IV PRN (05:43)
[2022-03-04] MEDS: CARBIDOPA/LEVODOPA 25-100 MG TABLET PO SCH ×3 (08:55→21:05)
[2022-03-04] MEDS: MEROPENEM 500 MG in SODIUM CHLORIDE 0.9% 100 ML IV SCH (12:20)
[2022-03-04] MEDS ORDERED: ROCURONIUM 50 MG/5 ML VIAL IV ONE (12:58)
[2022-03-04] MEDS ORDERED: PHENYLEPHRINE 1 MG/10 ML SYRINGE IV ONE (12:58)
[2022-03-04] MEDS ORDERED: MIDAZOLAM 2 MG/2 ML VIAL ONE (12:58)
[2022-03-04] MEDS ORDERED: SEVOFLURANE 1 UNIT/15 MINUTE INH ONE (13:32)
[2022-03-04] MEDS: PANTOPRAZOLE 40 MG VIAL IV SCH (21:05)
[2022-03-05] MEDS: INSULIN LISPRO 100 UNIT/ML SUBCUT SCH ×4 (00:08→17:24)
[2022-03-05] MEDS: traMADol 50 MG TABLET PO PRN (00:14)
[2022-03-05] MEDS: HYDROCORTISONE 100 MG VIAL IV SCH ×3 (00:15→18:00)
[2022-03-05] MEDS: NOREPINEPHRINE DRIP 8 MG/250 ML PREMIX IV PRN (02:50)
[2022-03-05] MEDS: LACTATED RINGERS 1,000 ML IV SCH ×4 (02:50→22:34)
[2022-03-05 03:45] LABS: ABG HCO3 19.5 MMOL/L (20-26); ABG Oxygen Saturation 98.8 % (95-100); ABG PCO2 33.6 MM HG (35-48); ABG PH 7.353 (7.35-7.45); ABG TCO2 16.5 MMOL/L (23-27)
[2022-03-05 03:53] LABS: Basophils # 0.1 10*3/uL (0.0-0.2); Basophils % 0.4 % (0.0-0.8); Hematocrit 38.1 VOL% (35.7-47.0); Hemoglobin 12.8 GM/DL (12.0-16.0); Immature Granulocytes % 1.4 %; Immature Granulocytes Absolute 0.28 #; Lymphocytes # 0.6 10*3/uL (1.4-4.0); Mean Corpuscular HGB Conc 33.6 GM/DL (32-36); Monocytes # 0.7 10*3/uL (0.11-0.8); Monocytes % 3.2 % (1.7-12.7); Red Blood Count 4.38 MC/CUMM (3.8-5.5); Red Cell Distribution Width 14.6 % (9.3-17.3); White Blood Count 20.7 T/CUMM (4-12)
[2022-03-05 03:55] LABS: Platelet Count 19 T/CUMM (130-400)
[2022-03-05] MEDS ORDERED: SODIUM CHLORIDE 0.9% 1,000 ML IV PRN ×2 (04:00→04:02)
[2022-03-05 04:02] LABS: Osmolality,Calculated 307.8 MOS/KG (273-304); Potassium 3.7 MMOL/L (3.5-5.1)
[2022-03-05 04:14] LABS: Band Neutrophils 5 % (0-10); Lymphocytes 5 % (20-55); Myelocytes 1 %; Total Cells Counted 100
[2022-03-05 04:16] LABS: Microcytosis Slight; Platelet Estimate Decreased
[2022-03-05] MEDS: FAMOTIDINE 20 MG/2 ML VIAL IV SCH ×2 (09:30→21:14)
[2022-03-05] MEDS: CARBIDOPA/LEVODOPA 25-100 MG TABLET PO SCH ×3 (09:30→21:07)
[2022-03-05] MEDS: MEROPENEM 500 MG in SODIUM CHLORIDE 0.9% 100 ML IV SCH (11:37)
[2022-03-05] MEDS: LEVOFLOXACIN INJ 750 MG/150 ML PREMIX IV SCH (12:52)
[2022-03-05] MEDS: MIDAZOLAM DRIP 100 MG/100 ML PREMIX IV PRN (14:49)
[2022-03-06] MEDS: INSULIN LISPRO 100 UNIT/ML SUBCUT SCH ×4 (04:31→17:31)
[2022-03-06] MEDS: LACTATED RINGERS 1,000 ML IV SCH ×2 (04:31→08:19)
[2022-03-06] MEDS: HYDROCORTISONE 100 MG VIAL IV SCH ×3 (04:33→17:29)
[2022-03-06 04:49] LABS: ABG Base Excess -4.1 MMOL/L (-2.5-2.5); ABG HCO3 20.9 MMOL/L (20-26); ABG Oxygen Saturation 93.1 % (95-100); ABG PCO2 36.1 MM HG (35-48); ABG PH 7.365 (7.35-7.45); ABG PO2 72.9 MM HG (80-95); ABG TCO2 18.4 MMOL/L (23-27)
[2022-03-06 04:53] LABS: Basophils # 0.1 10*3/uL (0.0-0.2); Basophils % 0.3 % (0.0-0.8); Eosinophils % 0.1 % (0.00-10.9); Hematocrit 36.1 VOL% (35.7-47.0); Hemoglobin 12.1 GM/DL (12.0-16.0); Immature Granulocytes Absolute 0.19 #; Lymphocytes # 0.8 10*3/uL (1.4-4.0); Lymphocytes % 4.3 % (21.3-54.2); Mean Corpuscular HGB Conc 33.5 GM/DL (32-36); Mean Platelet Volume 12.4 FL (9.6-12.0); Monocytes # 0.8 10*3/uL (0.11-0.8); Monocytes % 4.2 % (1.7-12.7); Neutrophils % 90.1 % (38.7-73.9); Red Blood Count 4.15 MC/CUMM (3.8-5.5); Red Cell Distribution Width 14.5 % (9.3-17.3); White Blood Count 19.6 T/CUMM (4-12)
[2022-03-06 04:55] LABS: Platelet Count 28 T/CUMM (130-400)
[2022-03-06 05:04] LABS: Calcium 8.6 MG/DL (8.5-10.1); Osmolality,Calculated 311.7 MOS/KG (273-304); Potassium 3.2 MMOL/L (3.5-5.1)
[2022-03-06 05:13] LABS: Band Neutrophils 4 % (0-10); Lymphocytes 7 % (20-55); Platelet Estimate Decreased; Total Cells Counted 100
[2022-03-06 05:14] LABS: Microcytosis Slight
[2022-03-06] MEDS: CARBIDOPA/LEVODOPA 25-100 MG TABLET PO SCH ×3 (08:06→21:15)
[2022-03-06] MEDS: FAMOTIDINE 20 MG/2 ML VIAL IV SCH (08:08)
[2022-03-06] MEDS: SODIUM CHLORIDE 0.45% 1,000 ML IV SCH ×2 (09:05→22:25)
[2022-03-06] MEDS ORDERED: POTASSIUM PHOS/SOD PHOS 250 MG TABLET PO ONE (10:00)
[2022-03-06] MEDS ORDERED: POTASSIUM BICARB EFFERVESCENT 20 MEQ TAB.EFF PO ONE (10:00)
[2022-03-06] MEDS: MIDAZOLAM DRIP 100 MG/100 ML PREMIX IV PRN (17:34)
[2022-03-07] MEDS: HYDROCORTISONE 100 MG VIAL IV SCH ×2 (01:13→08:50)
[2022-03-07] MEDS: INSULIN LISPRO 100 UNIT/ML SUBCUT SCH ×5 (01:13→23:29)
[2022-03-07 04:37] LABS: ABG Base Excess -3.8 MMOL/L (-2.5-2.5); ABG HCO3 21.3 MMOL/L (20-26); ABG Oxygen Saturation 98.4 % (95-100); ABG PCO2 35.2 MM HG (35-48); ABG PH 7.377 (7.35-7.45); ABG TCO2 18.2 MMOL/L (23-27); Basophils # 0.1 10*3/uL (0.0-0.2); Basophils % 0.3 % (0.0-0.8); Eosinophils % 0.2 % (0.00-10.9); Hematocrit 38.9 VOL% (35.7-47.0); Hemoglobin 12.9 GM/DL (12.0-16.0); Immature Granulocytes % 1.6 %; Immature Granulocytes Absolute 0.41 #; Lymphocytes # 1.1 10*3/uL (1.4-4.0); Lymphocytes % 4.6 % (21.3-54.2); Mean Corpuscular HGB Conc 33.2 GM/DL (32-36); Mean Corpuscular Volume 85.9 FL (87-102); Monocytes # 0.9 10*3/uL (0.11-0.8); Monocytes % 3.4 % (1.7-12.7); Neutrophils % 89.9 % (38.7-73.9); Red Blood Count 4.53 MC/CUMM (3.8-5.5); Red Cell Distribution Width 14.4 % (9.3-17.3)
[2022-03-07 04:41] LABS: Platelet Count 29 T/CUMM (130-400)
[2022-03-07 04:50] LABS: Calcium 8.8 MG/DL (8.5-10.1); Osmolality,Calculated 310.8 MOS/KG (273-304); Potassium 3.1 MMOL/L (3.5-5.1)
[2022-03-07 04:57] LABS: Band Neutrophils 1 % (0-10); Lymphocytes 1 % (20-55); Total Cells Counted 100
[2022-03-07 04:58] LABS: Platelet Estimate Decreased
[2022-03-07] MEDS ORDERED: POTASSIUM BICARB EFFERVESCENT 20 MEQ TAB.EFF PO ONE (05:30)
[2022-03-07] MEDS: FAMOTIDINE 20 MG/2 ML VIAL IV SCH (08:50)
[2022-03-07] MEDS: MEROPENEM 500 MG in SODIUM CHLORIDE 0.9% 100 ML IV SCH ×2 (08:50→20:16)
[2022-03-07] MEDS: CARBIDOPA/LEVODOPA 25-100 MG TABLET PO SCH ×3 (08:55→20:24)
[2022-03-07] MEDS: traMADol 50 MG TABLET PO PRN ×3 (08:55→21:05)
[2022-03-07] MEDS: SODIUM CHLORIDE 0.45% 1,000 ML IV SCH (10:49)
[2022-03-07] MEDS ORDERED: HYDROCORTISONE 100 MG VIAL IV SCH (13:00)
[2022-03-07] MEDS: LEVOFLOXACIN INJ 750 MG/150 ML PREMIX IV SCH (13:35)
[2022-03-08] MEDS: SODIUM CHLORIDE 0.45% 1,000 ML IV SCH (02:09)
[2022-03-08 04:15] LABS: ABG Base Excess -2.6 MMOL/L (-2.5-2.5); ABG HCO3 22.3 MMOL/L (20-26); ABG Oxygen Saturation 98.8 % (95-100); ABG PCO2 33.4 MM HG (35-48); ABG PH 7.412 (7.35-7.45); ABG TCO2 18.7 MMOL/L (23-27)
[2022-03-08 04:19] LABS: Basophils # 0.1 10*3/uL (0.0-0.2); Basophils % 0.3 % (0.0-0.8); Eosinophils % 0.1 % (0.00-10.9); Hematocrit 37.5 VOL% (35.7-47.0); Hemoglobin 12.3 GM/DL (12.0-16.0); Immature Granulocytes % 3.1 %; Immature Granulocytes Absolute 0.86 #; Lymphocytes % 3.4 % (21.3-54.2); Mean Corpuscular HGB Conc 32.8 GM/DL (32-36); Mean Corpuscular Volume 87.2 FL (87-102); Mean Platelet Volume 13.6 FL (9.6-12.0); Monocytes # 0.9 10*3/uL (0.11-0.8); Monocytes % 3.4 % (1.7-12.7); Neutrophils % 89.7 % (38.7-73.9); Red Cell Distribution Width 14.6 % (9.3-17.3); White Blood Count 27.7 T/CUMM (4-12)
[2022-03-08 04:24] LABS: Platelet Count 39 T/CUMM (130-400)
[2022-03-08 04:37] LABS: Band Neutrophils 5 % (0-10); Lymphocytes 2 % (20-55); Total Cells Counted 100
[2022-03-08 04:38] LABS: Microcytosis Slight; Ovalocytes Slight
[2022-03-08 04:41] LABS: Calcium 8.6 MG/DL (8.5-10.1); Osmolality,Calculated 312.7 MOS/KG (273-304); Potassium 3.6 MMOL/L (3.5-5.1)
[2022-03-08] MEDS: INSULIN LISPRO 100 UNIT/ML SUBCUT SCH ×4 (05:55→20:51)
[2022-03-08] MEDS: HYDROCORTISONE 100 MG VIAL IV SCH ×2 (08:40→20:50)
[2022-03-08] MEDS: FAMOTIDINE 20 MG/2 ML VIAL IV SCH (08:40)
[2022-03-08] MEDS: MIDAZOLAM DRIP 100 MG/100 ML PREMIX IV PRN (08:45)
[2022-03-08] MEDS: traMADol 50 MG TABLET PO PRN (08:45)
[2022-03-08] MEDS: CARBIDOPA/LEVODOPA 25-100 MG TABLET PO SCH ×3 (08:45→20:50)
[2022-03-08] MEDS: MEROPENEM 500 MG in SODIUM CHLORIDE 0.9% 100 ML IV SCH ×2 (08:45→20:49)
[2022-03-08] MEDS ORDERED: FLUCONAZOLE INJ 200 MG/100 ML PREMIX IV SCH (14:00)
[2022-03-09 04:40] LABS: Arterial Base Excess iSTAT 0 MMOL/L (-2.5-2.5); Arterial Bicarbonate iSTAT 24.1 MMOL/L (20-26); Arterial O2 Saturation iSTAT 99 % (95-100); Arterial PCO2 iSTAT 38 MM HG (35-48); Arterial PO2 iSTAT 115 MM HG (80-95); Arterial Total CO2 iSTAT 25 MMO/L (23-27); Arterial pH iSTAT 7.411 (7.35-7.45)
[2022-03-09 05:16] LABS: Basophils % 0.2 % (0.0-0.8); Eosinophils # 0.2 10*3/uL (0.0-0.87); Eosinophils % 0.8 % (0.00-10.9); Hematocrit 35.7 VOL% (35.7-47.0); Hemoglobin 11.5 GM/DL (12.0-16.0); Immature Granulocytes % 2.9 %; Immature Granulocytes Absolute 0.61 #; Lymphocytes % 4.8 % (21.3-54.2); Mean Corpuscular HGB Conc 32.2 GM/DL (32-36); Mean Corpuscular Volume 88.4 FL (87-102); Mean Platelet Volume 11.3 FL (9.6-12.0); Monocytes # 0.4 10*3/uL (0.11-0.8); Monocytes % 2.1 % (1.7-12.7); Neutrophils % 89.2 % (38.7-73.9); Platelet Count 59 T/CUMM (130-400); Red Blood Count 4.04 MC/CUMM (3.8-5.5); Red Cell Distribution Width 14.5 % (9.3-17.3); White Blood Count 20.9 T/CUMM (4-12)
[2022-03-09 05:39] LABS: Osmolality,Calculated 312.1 MOS/KG (273-304); Potassium 3.4 MMOL/L (3.5-5.1)
[2022-03-09 05:53] LABS: Band Neutrophils 4 % (0-10); Lymphocytes 2 % (20-55); Microcytosis Slight; Ovalocytes Slight; Total Cells Counted 100
[2022-03-09 05:54] LABS: Platelet Estimate Decreased
[2022-03-09] MEDS: traMADol 50 MG TABLET PO PRN (06:24)
[2022-03-09] MEDS ORDERED: POTASSIUM CHLORIDE 20 MEQ TABLET PO ONE (08:03)
[2022-03-09] MEDS: INSULIN LISPRO 100 UNIT/ML SUBCUT SCH ×4 (09:01→21:26)
[2022-03-09] MEDS: FAMOTIDINE 20 MG/2 ML VIAL IV SCH (09:02)
[2022-03-09] MEDS: HYDROCORTISONE 100 MG VIAL IV SCH (09:02)
[2022-03-09] MEDS: CARBIDOPA/LEVODOPA 25-100 MG TABLET PO SCH ×3 (09:02→21:27)
[2022-03-09] MEDS: MEROPENEM 500 MG in SODIUM CHLORIDE 0.9% 100 ML IV SCH (09:03)
[2022-03-09] MEDS ORDERED: hydrOXYzine HCL 25 MG TABLET PO PRN (09:32)
[2022-03-09] MEDS ORDERED: traMADol 50 MG TABLET PO PRN (09:32)
[2022-03-09] MEDS ORDERED: LIDOCAINE 5% PATCH TRANSDERM PRN (09:46)
[2022-03-09] MEDS ORDERED: clonazePAM 0.5 MG TABLET PO ONE (15:30)
[2022-03-09] MEDS: FLUCONAZOLE 200 MG TABLET PO SCH (15:59)
[2022-03-09] MEDS: PRAMIPEXOLE 1 MG TABLET PO SCH ×2 (15:59→21:26)
[2022-03-09] MEDS: LEVOFLOXACIN 750 MG TABLET PO SCH (15:59)
[2022-03-09] MEDS: clonazePAM 0.5 MG TABLET PO SCH (21:26)
[2022-03-10] MEDS: traMADol 50 MG TABLET PO PRN (00:13)
[2022-03-10 05:25] LABS: Calcium 8.3 MG/DL (8.5-10.1); Osmolality,Calculated 303.4 MOS/KG (273-304); Potassium 4.2 MMOL/L (3.5-5.1)
[2022-03-10 08:01] LABS: Basophils % 0.2 % (0.0-0.8); Eosinophils # 0.4 10*3/uL (0.0-0.87); Eosinophils % 1.8 % (0.00-10.9); Hematocrit 34.3 VOL% (35.7-47.0); Hemoglobin 11.2 GM/DL (12.0-16.0); Immature Granulocytes % 2.4 %; Immature Granulocytes Absolute 0.45 #; Lymphocytes # 0.9 10*3/uL (1.4-4.0); Lymphocytes % 4.8 % (21.3-54.2); Mean Corpuscular HGB Conc 32.7 GM/DL (32-36); Mean Corpuscular Volume 89.8 FL (87-102); Mean Platelet Volume 11.5 FL (9.6-12.0); Monocytes # 0.6 10*3/uL (0.11-0.8); Monocytes % 2.9 % (1.7-12.7); Neutrophils % 87.9 % (38.7-73.9); Red Blood Count 3.82 MC/CUMM (3.8-5.5); Red Cell Distribution Width 14.4 % (9.3-17.3); White Blood Count 19.1 T/CUMM (4-12)
[2022-03-10 08:03] LABS: Platelet Count 92 T/CUMM (130-400)
[2022-03-10 08:36] LABS: Band Neutrophils 10 % (0-10); Eosinophils 1 % (0-10); Lymphocytes 4 % (20-55); Metamyelocytes 2 %; Platelet Estimate Decreased; Total Cells Counted 100
[2022-03-10] MEDS ORDERED: FUROSEMIDE 20 MG TABLET PO SCH (09:00)
[2022-03-10] MEDS: PRAMIPEXOLE 1 MG TABLET PO SCH ×3 (09:51→20:40)
[2022-03-10] MEDS: FLUCONAZOLE 200 MG TABLET PO SCH (09:51)
[2022-03-10] MEDS: clonazePAM 0.5 MG TABLET PO SCH ×2 (09:52→20:40)
[2022-03-10] MEDS: MONTELUKAST 10 MG TABLET PO SCH (09:52)
[2022-03-10] MEDS: FAMOTIDINE 20 MG TABLET PO SCH (09:52)
[2022-03-10] MEDS: ESCITALOPRAM 10 MG TABLET PO SCH (09:52)
[2022-03-10] MEDS: CARBIDOPA/LEVODOPA 25-100 MG TABLET PO SCH ×3 (09:52→20:40)
[2022-03-10] MEDS: INSULIN LISPRO 100 UNIT/ML SUBCUT SCH ×4 (09:52→21:21)
[2022-03-10] MEDS: ENOXAPARIN 30 MG/0.3 ML SYRINGE SUBCUT SCH (10:55)
[2022-03-11 05:35] LABS: Basophils % 0.2 % (0.0-0.8); Eosinophils # 0.4 10*3/uL (0.0-0.87); Eosinophils % 2.1 % (0.00-10.9); Hematocrit 32.5 VOL% (35.7-47.0); Hemoglobin 10.7 GM/DL (12.0-16.0); Immature Granulocytes % 2.3 %; Immature Granulocytes Absolute 0.39 #; Lymphocytes % 5.6 % (21.3-54.2); Mean Corpuscular HGB Conc 32.9 GM/DL (32-36); Mean Corpuscular Volume 88.3 FL (87-102); Mean Platelet Volume 10.8 FL (9.6-12.0); Monocytes # 0.6 10*3/uL (0.11-0.8); Monocytes % 3.5 % (1.7-12.7); Neutrophils % 86.3 % (38.7-73.9); Platelet Count 124 T/CUMM (130-400); Red Blood Count 3.68 MC/CUMM (3.8-5.5); Red Cell Distribution Width 14.2 % (9.3-17.3)
[2022-03-11 05:43] LABS: Calcium 8.9 MG/DL (8.5-10.1); Osmolality,Calculated 293.7 MOS/KG (273-304); Potassium 3.7 MMOL/L (3.5-5.1)
[2022-03-11 06:12] LABS: Platelet Estimate Adequate
[2022-03-11] MEDS: INSULIN LISPRO 100 UNIT/ML SUBCUT SCH ×4 (08:12→21:31)
[2022-03-11] MEDS: PRAMIPEXOLE 1 MG TABLET PO SCH ×3 (09:26→21:35)
[2022-03-11] MEDS: clonazePAM 0.5 MG TABLET PO SCH ×2 (09:26→21:35)
[2022-03-11] MEDS: ESCITALOPRAM 10 MG TABLET PO SCH (09:26)
[2022-03-11] MEDS: CARBIDOPA/LEVODOPA 25-100 MG TABLET PO SCH ×3 (09:26→21:35)
[2022-03-11] MEDS: MONTELUKAST 10 MG TABLET PO SCH (09:26)
[2022-03-11] MEDS: LEVOFLOXACIN 750 MG TABLET PO SCH (09:27)
[2022-03-11] MEDS: FLUCONAZOLE 200 MG TABLET PO SCH (09:27)
[2022-03-11] MEDS: ENOXAPARIN 30 MG/0.3 ML SYRINGE SUBCUT SCH (09:27)
[2022-03-11] MEDS: FAMOTIDINE 20 MG TABLET PO SCH (09:27)
[2022-03-11] MEDS: MAGNESIUM SULF RIDER 2 GM/50 ML PREMIX IV PRN (21:39)
[2022-03-12] MEDS: traMADol 50 MG TABLET PO PRN (02:44)
[2022-03-12 07:35] LABS: Basophils % 0.3 % (0.0-0.8); Eosinophils # 0.2 10*3/uL (0.0-0.87); Eosinophils % 1.2 % (0.00-10.9); Hematocrit 36.6 VOL% (35.7-47.0); Hemoglobin 11.4 GM/DL (12.0-16.0); Immature Granulocytes % 1.4 %; Immature Granulocytes Absolute 0.22 #; Lymphocytes # 1.2 10*3/uL (1.4-4.0); Lymphocytes % 7.9 % (21.3-54.2); Mean Corpuscular HGB Conc 31.1 GM/DL (32-36); Mean Corpuscular Volume 93.4 FL (87-102); Mean Platelet Volume 11.6 FL (9.6-12.0); Monocytes # 1.1 10*3/uL (0.11-0.8); Neutrophils % 82.2 % (38.7-73.9); Platelet Count 116 T/CUMM (130-400); Red Blood Count 3.92 MC/CUMM (3.8-5.5); Red Cell Distribution Width 14.5 % (9.3-17.3); White Blood Count 15.6 T/CUMM (4-12)
[2022-03-12 07:46] LABS: Calcium 8.9 MG/DL (8.5-10.1); Osmolality,Calculated 286.8 MOS/KG (273-304); Potassium 4.3 MMOL/L (3.5-5.1)
[2022-03-12] MEDS: INSULIN LISPRO 100 UNIT/ML SUBCUT SCH ×4 (07:48→20:40)
[2022-03-12] MEDS: FAMOTIDINE 20 MG TABLET PO SCH (08:48)
[2022-03-12] MEDS: CARBIDOPA/LEVODOPA 25-100 MG TABLET PO SCH ×3 (08:48→20:40)
[2022-03-12] MEDS: MONTELUKAST 10 MG TABLET PO SCH (08:48)
[2022-03-12] MEDS: PRAMIPEXOLE 1 MG TABLET PO SCH ×3 (08:48→20:40)
[2022-03-12] MEDS: clonazePAM 0.5 MG TABLET PO SCH ×2 (08:48→20:40)
[2022-03-12] MEDS: FLUCONAZOLE 200 MG TABLET PO SCH (08:48)
[2022-03-12] MEDS: ESCITALOPRAM 10 MG TABLET PO SCH (08:48)
[2022-03-12] MEDS: ENOXAPARIN 40 MG/0.4 ML SYRINGE SUBCUT SCH (08:49)
[2022-03-13] MEDS: INSULIN LISPRO 100 UNIT/ML SUBCUT SCH ×4 (07:29→20:30)
[2022-03-13] MEDS: LEVOFLOXACIN 750 MG TABLET PO SCH (08:17)
[2022-03-13] MEDS: MONTELUKAST 10 MG TABLET PO SCH (08:17)
[2022-03-13] MEDS: clonazePAM 0.5 MG TABLET PO SCH ×2 (08:17→20:30)
[2022-03-13] MEDS: FLUCONAZOLE 200 MG TABLET PO SCH (08:17)
[2022-03-13] MEDS: ESCITALOPRAM 10 MG TABLET PO SCH (08:17)
[2022-03-13] MEDS: FAMOTIDINE 20 MG TABLET PO SCH (08:18)
[2022-03-13] MEDS: PRAMIPEXOLE 1 MG TABLET PO SCH ×3 (08:18→20:30)
[2022-03-13] MEDS: ENOXAPARIN 40 MG/0.4 ML SYRINGE SUBCUT SCH (08:18)
[2022-03-13] MEDS: CARBIDOPA/LEVODOPA 25-100 MG TABLET PO SCH ×3 (08:18→20:30)
[2022-03-14] MEDS: INSULIN LISPRO 100 UNIT/ML SUBCUT SCH (08:26)
[2022-03-14 08:46] VITALS: BP 145/47
[2022-03-14] MEDS: ENOXAPARIN 40 MG/0.4 ML SYRINGE SUBCUT SCH (09:01)
[2022-03-14] MEDS: clonazePAM 0.5 MG TABLET PO SCH (09:01)
[2022-03-14] MEDS: FLUCONAZOLE 200 MG TABLET PO SCH (09:02)
[2022-03-14] MEDS: FAMOTIDINE 20 MG TABLET PO SCH (09:02)
[2022-03-14] MEDS: ESCITALOPRAM 10 MG TABLET PO SCH (09:02)
[2022-03-14] MEDS: MONTELUKAST 10 MG TABLET PO SCH (09:02)
[2022-03-14] MEDS: CARBIDOPA/LEVODOPA 25-100 MG TABLET PO SCH (09:02)
[2022-03-14] MEDS: PRAMIPEXOLE 1 MG TABLET PO SCH (09:02)
== END 2022-03-14 10:38 | DRG 853 ==
LOC: N.ED 09:19 → SUATTDRO 11:53 → N.ICU 11:53 → N.5E 03-09 17:14 → N.2E 03-13 11:10
PROVIDERS: ADMIT Internal Medicine; ATTEND Family Medicine

== ENCOUNTER 2022-04-21 09:56 | Inpatient (IN) ==
[2022-04-21] MEDS ORDERED: SODIUM CHLORIDE 0.9% 1,000 ML IV STA (10:07)
[2022-04-21] MEDS ORDERED: PROMETHAZINE INJ 12.5 MG in SODIUM CHLORIDE 0.9% 50 ML IV STA (10:09)
[2022-04-21 10:55] LABS: Bilirubin,Urine Negative (Negative); Glucose,Urine (UA) Negative (Negative); Ketones,Urine Negative (Negative); Nitrite,Urine Negative (Negative); Protein,Urine >=300 mg/dL (Negative); RBC,Urine 53 /HPF (0-4); Squamous Epithelial Cell,Urine Occasional /HPF (0-10); Urine Appearance Turbid (Clear); Urine Color Yellow (Yellow); Urine Specific Gravity 1.015 (1.001-1.035)
[2022-04-21 10:56] LABS: Blood, Urine Large mg/dL (Negative); Urine Urobilinogen 0.2 eU/dL (<2.0)
[2022-04-21] MEDS ORDERED: MAGNESIUM SULF RIDER 4 GM/100 ML PREMIX IV STA ×2 (11:00→11:02)
[2022-04-21 11:01] LABS: Basophils % 0.3 % (0.0-0.8); Eosinophils # 0.1 10*3/uL (0.0-0.87); Eosinophils % 0.6 % (0.00-10.9); Hematocrit 33.3 VOL% (35.7-47.0); Hemoglobin 10.3 GM/DL (12.0-16.0); Immature Granulocytes % 1.3 %; Immature Granulocytes Absolute 0.13 #; Lymphocytes # 1.2 10*3/uL (1.4-4.0); Lymphocytes % 11.8 % (21.3-54.2); Mean Corpuscular HGB Conc 30.9 GM/DL (32-36); Mean Corpuscular Volume 84.1 FL (87-102); Mean Platelet Volume 9.7 FL (9.6-12.0); Monocytes # 0.4 10*3/uL (0.11-0.8); Monocytes % 4.1 % (1.7-12.7); Neutrophils % 81.9 % (38.7-73.9); Platelet Count 267 T/CUMM (130-400); Red Blood Count 3.96 MC/CUMM (3.8-5.5); Red Cell Distribution Width 16.1 % (9.3-17.3); White Blood Count 10.2 T/CUMM (4-12)
[2022-04-21] MEDS ORDERED: CEFEPIME 2,000 MG in SODIUM CHLORIDE 0.9% 100 ML IV ONE (11:01)
[2022-04-21 11:09] LABS: Alanine Aminotransferase < 6 U/L (13-56); Albumin 3.2 G/DL (3.4-5.0); Alkaline Phosphatase 255 U/L (45-117); Aspartate Amino Transferase 20 U/L (0-37); Bilirubin,Indirect 0.3 MG/DL (0.0-1.0); Blood Urea Nitrogen 86 MG/DL (7-18); Calcium 9.3 MG/DL (8.5-10.1); Carbon Dioxide 23 MMOL/L (21-32); Chloride 107 MMOL/L (98-107); Glucose 134 MG/DL (74-106); Osmolality,Calculated 308.3 MOS/KG (273-304); Potassium 4.2 MMOL/L (3.5-5.1); Sodium 141 MMOL/L (136-145); Total Protein 6.7 G/DL (6.4-8.2)
[2022-04-21] MEDS ORDERED: VANCOMYCIN INJ 1,500 MG in SODIUM CHLORIDE 0.9% 500 ML IV STA (11:15)
[2022-04-21] MEDS ORDERED: LACTATED RINGERS 1,000 ML IV ONE (11:19)
[2022-04-21] MEDS ORDERED: VANCOMYCIN INJ 1,000 MG in SODIUM CHLORIDE 0.9% 250 ML IV STA (11:23)
[2022-04-21] MEDS ORDERED: CEFEPIME 1,000 MG in SODIUM CHLORIDE 0.9% 100 ML IV ONE (11:30)
[2022-04-21] MEDS ORDERED: ACETAMINOPHEN 325 MG TABLET PO PRN (14:02)
[2022-04-21] MEDS ORDERED: ONDANSETRON 4 MG/2 ML VIAL IV PRN (14:02)
[2022-04-21] MEDS ORDERED: PROMETHAZINE 12.5 MG SUPP RECTAL PRN (14:02)
[2022-04-21] MEDS: PRAMIPEXOLE 1 MG TABLET PO SCH ×2 (14:32→20:26)
[2022-04-21] MEDS: CARBIDOPA/LEVODOPA 25-100 MG TABLET PO SCH ×2 (14:32→20:26)
[2022-04-21] MEDS ORDERED: LIDOCAINE 5% PATCH TRANSDERM PRN (14:51)
[2022-04-21] MEDS ORDERED: SODIUM CHLORIDE 0.9% 1,000 ML IV ONE (16:23)
[2022-04-21] MEDS: SODIUM CHLORIDE 0.9% 1,000 ML IV SCH (17:40)
[2022-04-21] MEDS: ATORVASTATIN 20 MG TABLET PO SCH (20:26)
[2022-04-21] MEDS: clonazePAM 0.5 MG TABLET PO SCH (20:26)
[2022-04-21] MEDS: FERROUS SULFATE 325 MG TABLET PO SCH (20:26)
[2022-04-21] MEDS: DOCUSATE SODIUM 100 MG CAPSULE PO SCH (20:26)
[2022-04-21] MEDS: ENOXAPARIN 30 MG/0.3 ML SYRINGE SUBCUT SCH (20:27)
[2022-04-21] MEDS: MELATONIN 3 MG TABLET PO SCH (20:33)
[2022-04-21] MEDS ORDERED: HYDROCORTISONE 1% CREAM 28 GM TUBE TOP PRN (21:00)
[2022-04-22] MEDS: SODIUM CHLORIDE 0.9% 1,000 ML IV SCH ×2 (00:18→07:23)
[2022-04-22 05:55] LABS: Basophils % 0.5 % (0.0-0.8); Eosinophils # 0.4 10*3/uL (0.0-0.87); Eosinophils % 5.2 % (0.00-10.9); Hematocrit 27.9 VOL% (35.7-47.0); Hemoglobin 8.6 GM/DL (12.0-16.0); Immature Granulocytes % 1.1 %; Immature Granulocytes Absolute 0.08 #; Lymphocytes # 1.9 10*3/uL (1.4-4.0); Lymphocytes % 25.4 % (21.3-54.2); Mean Corpuscular HGB Conc 30.8 GM/DL (32-36); Mean Corpuscular Volume 85.1 FL (87-102); Mean Platelet Volume 9.9 FL (9.6-12.0); Monocytes # 0.5 10*3/uL (0.11-0.8); Monocytes % 6.2 % (1.7-12.7); Neutrophils % 61.6 % (38.7-73.9); Platelet Count 210 T/CUMM (130-400); Red Blood Count 3.28 MC/CUMM (3.8-5.5); Red Cell Distribution Width 16.2 % (9.3-17.3); White Blood Count 7.3 T/CUMM (4-12)
[2022-04-22 06:08] LABS: Calcium 8.8 MG/DL (8.5-10.1); Osmolality,Calculated 299.1 MOS/KG (273-304); Potassium 3.1 MMOL/L (3.5-5.1)
[2022-04-22] MEDS ORDERED: SODIUM CHLORIDE 0.9% 500 ML IV ONE (06:45)
[2022-04-22] MEDS: SODIUM CHLOR 0.9% KCL 20 MEQ 20 MEQ/1,000 ML BAG IV SCH ×2 (08:06→18:06)
[2022-04-22] MEDS: PRAMIPEXOLE 1 MG TABLET PO SCH ×3 (09:30→21:44)
[2022-04-22] MEDS: ESCITALOPRAM 10 MG TABLET PO SCH (09:31)
[2022-04-22] MEDS: FERROUS SULFATE 325 MG TABLET PO SCH ×2 (09:32→21:44)
[2022-04-22] MEDS: MULTIVITAMIN (CENTRUM) TABLET PO SCH (09:32)
[2022-04-22] MEDS: clonazePAM 0.5 MG TABLET PO SCH ×2 (09:32→21:43)
[2022-04-22] MEDS: DILTIAZEM CD 240 MG CAPSULE PO SCH (09:32)
[2022-04-22] MEDS: MONTELUKAST 10 MG TABLET PO SCH (09:32)
[2022-04-22] MEDS: sitaGLIPtin 25 MG TABLET PO SCH (09:32)
[2022-04-22] MEDS: CARBIDOPA/LEVODOPA 25-100 MG TABLET PO SCH ×3 (09:33→21:44)
[2022-04-22] MEDS: DOCUSATE SODIUM 100 MG CAPSULE PO SCH ×2 (09:33→21:44)
[2022-04-22] MEDS: SELENIUM 200 MCG PO SCH (09:45)
[2022-04-22] MEDS: PANTOPRAZOLE 40 MG VIAL IV SCH (09:45)
[2022-04-22] MEDS: LACTOBACILLUS ACIDOPHILUS PO SCH (09:45)
[2022-04-22] MEDS: RASAGILINE 1 MG PO SCH (09:45)
[2022-04-22] MEDS: CEFEPIME 1,000 MG in SODIUM CHLORIDE 0.9% 100 ML IV SCH (09:47)
[2022-04-22] MEDS ORDERED: VANCOMYCIN INJ 1,000 MG in SODIUM CHLORIDE 0.9% 250 ML IV PRN (12:00)
[2022-04-22] MEDS: VANCOMYCIN INJ 1,000 MG in SODIUM CHLORIDE 0.9% 250 ML IV SCH (12:47)
[2022-04-22] MEDS: ATORVASTATIN 20 MG TABLET PO SCH (21:44)
[2022-04-22] MEDS: ACETAMINOPHEN 500 MG TABLET PO PRN (21:44)
[2022-04-22] MEDS: MELATONIN 3 MG TABLET PO SCH (21:44)
[2022-04-22] MEDS: ENOXAPARIN 30 MG/0.3 ML SYRINGE SUBCUT SCH (21:44)
[2022-04-23] MEDS: SODIUM CHLOR 0.9% KCL 20 MEQ 20 MEQ/1,000 ML BAG IV SCH ×2 (04:10→20:26)
[2022-04-23] MEDS: VANCOMYCIN INJ 1,000 MG in SODIUM CHLORIDE 0.9% 250 ML IV SCH (06:09)
[2022-04-23] MEDS: FERROUS SULFATE 325 MG TABLET PO SCH ×2 (10:01→20:28)
[2022-04-23] MEDS: CEFEPIME 1,000 MG in SODIUM CHLORIDE 0.9% 100 ML IV SCH (10:01)
[2022-04-23] MEDS: ESCITALOPRAM 10 MG TABLET PO SCH (10:02)
[2022-04-23] MEDS: CARBIDOPA/LEVODOPA 25-100 MG TABLET PO SCH ×3 (10:02→20:27)
[2022-04-23] MEDS: DOCUSATE SODIUM 100 MG CAPSULE PO SCH ×2 (10:02→20:28)
[2022-04-23] MEDS: sitaGLIPtin 25 MG TABLET PO SCH (10:02)
[2022-04-23] MEDS: DILTIAZEM CD 240 MG CAPSULE PO SCH (10:03)
[2022-04-23] MEDS: MONTELUKAST 10 MG TABLET PO SCH (10:03)
[2022-04-23] MEDS: clonazePAM 0.5 MG TABLET PO SCH ×2 (10:03→20:27)
[2022-04-23] MEDS: MULTIVITAMIN (CENTRUM) TABLET PO SCH (10:03)
[2022-04-23] MEDS: PRAMIPEXOLE 1 MG TABLET PO SCH ×3 (10:03→20:27)
[2022-04-23] MEDS: PANTOPRAZOLE 40 MG VIAL IV SCH (10:04)
[2022-04-23] MEDS: RASAGILINE 0.5 MG TABLET PO SCH (11:14)
[2022-04-23] MEDS: LACTOBACILLUS ACIDOPHILUS PO SCH (11:16)
[2022-04-23] MEDS: SELENIUM 200 MCG PO SCH (11:16)
[2022-04-23] MEDS: RASAGILINE 1 MG PO SCH (11:16)
[2022-04-23] MEDS: MELATONIN 3 MG TABLET PO SCH (20:27)
[2022-04-23] MEDS: ENOXAPARIN 30 MG/0.3 ML SYRINGE SUBCUT SCH (20:27)
[2022-04-23] MEDS: ATORVASTATIN 20 MG TABLET PO SCH (20:28)
[2022-04-24] MEDS: VANCOMYCIN INJ 1,000 MG in SODIUM CHLORIDE 0.9% 250 ML IV SCH ×2 (01:55→18:33)
[2022-04-24 05:50] LABS: Calcium 9.5 MG/DL (8.5-10.1); Osmolality,Calculated 290.8 MOS/KG (273-304); Potassium 3.5 MMOL/L (3.5-5.1)
[2022-04-24] MEDS: SODIUM CHLOR 0.9% KCL 20 MEQ 20 MEQ/1,000 ML BAG IV SCH ×2 (08:33→16:44)
[2022-04-24] MEDS: PANTOPRAZOLE 40 MG VIAL IV SCH (09:39)
[2022-04-24] MEDS: MONTELUKAST 10 MG TABLET PO SCH (09:40)
[2022-04-24] MEDS: CARBIDOPA/LEVODOPA 25-100 MG TABLET PO SCH ×3 (09:40→20:09)
[2022-04-24] MEDS: sitaGLIPtin 25 MG TABLET PO SCH (09:40)
[2022-04-24] MEDS: BACILLUS COAGULANS CAPLET PO SCH (09:40)
[2022-04-24] MEDS: FERROUS SULFATE 325 MG TABLET PO SCH ×2 (09:40→20:09)
[2022-04-24] MEDS: DILTIAZEM CD 240 MG CAPSULE PO SCH (09:40)
[2022-04-24] MEDS: PRAMIPEXOLE 1 MG TABLET PO SCH ×3 (09:40→20:09)
[2022-04-24] MEDS: DOCUSATE SODIUM 100 MG CAPSULE PO SCH ×2 (09:40→20:09)
[2022-04-24] MEDS: MULTIVITAMIN (CENTRUM) TABLET PO SCH (09:41)
[2022-04-24] MEDS: ESCITALOPRAM 10 MG TABLET PO SCH (09:41)
[2022-04-24] MEDS: clonazePAM 0.5 MG TABLET PO SCH ×2 (09:41→20:09)
[2022-04-24] MEDS: RASAGILINE 0.5 MG TABLET PO SCH (09:41)
[2022-04-24] MEDS: CEFEPIME 1,000 MG in SODIUM CHLORIDE 0.9% 100 ML IV SCH (10:51)
[2022-04-24] MEDS ORDERED: BENZONATATE 100 MG CAPSULE PO PRN (19:26)
[2022-04-24] MEDS: MELATONIN 3 MG TABLET PO SCH (20:09)
[2022-04-24] MEDS: ATORVASTATIN 20 MG TABLET PO SCH (20:09)
[2022-04-24] MEDS: ENOXAPARIN 30 MG/0.3 ML SYRINGE SUBCUT SCH (20:14)
[2022-04-25] MEDS: SODIUM CHLOR 0.9% KCL 20 MEQ 20 MEQ/1,000 ML BAG IV SCH ×3 (03:25→23:15)
[2022-04-25] MEDS: ACETAMINOPHEN 500 MG TABLET PO PRN (04:39)
[2022-04-25] MEDS: sitaGLIPtin 25 MG TABLET PO SCH (09:47)
[2022-04-25] MEDS: PRAMIPEXOLE 1 MG TABLET PO SCH ×3 (09:47→21:24)
[2022-04-25] MEDS: clonazePAM 0.5 MG TABLET PO SCH ×2 (09:49→21:24)
[2022-04-25] MEDS: CARBIDOPA/LEVODOPA 25-100 MG TABLET PO SCH ×3 (09:49→21:25)
[2022-04-25] MEDS: FERROUS SULFATE 325 MG TABLET PO SCH ×2 (09:49→21:25)
[2022-04-25] MEDS: RASAGILINE 0.5 MG TABLET PO SCH (09:49)
[2022-04-25] MEDS: BACILLUS COAGULANS CAPLET PO SCH (09:49)
[2022-04-25] MEDS: MONTELUKAST 10 MG TABLET PO SCH (09:49)
[2022-04-25] MEDS: DOCUSATE SODIUM 100 MG CAPSULE PO SCH ×2 (09:50→21:25)
[2022-04-25] MEDS: ESCITALOPRAM 10 MG TABLET PO SCH (09:50)
[2022-04-25] MEDS: MULTIVITAMIN (CENTRUM) TABLET PO SCH (09:50)
[2022-04-25] MEDS: PANTOPRAZOLE 40 MG VIAL IV SCH (09:50)
[2022-04-25] MEDS: DILTIAZEM CD 240 MG CAPSULE PO SCH (09:54)
[2022-04-25] MEDS: CEFEPIME 1,000 MG in SODIUM CHLORIDE 0.9% 100 ML IV SCH (09:57)
[2022-04-25] MEDS: VANCOMYCIN INJ 1,000 MG in SODIUM CHLORIDE 0.9% 250 ML IV SCH (13:35)
[2022-04-25] MEDS: MELATONIN 3 MG TABLET PO SCH (21:24)
[2022-04-25] MEDS: ATORVASTATIN 20 MG TABLET PO SCH (21:25)
[2022-04-25] MEDS: ENOXAPARIN 30 MG/0.3 ML SYRINGE SUBCUT SCH (21:25)
[2022-04-26 08:08] LABS: Basophils # 0.1 10*3/uL (0.0-0.2); Basophils % 0.9 % (0.0-0.8); Eosinophils # 0.5 10*3/uL (0.0-0.87); Eosinophils % 4.9 % (0.00-10.9); Hematocrit 27.9 VOL% (35.7-47.0); Hemoglobin 8.7 GM/DL (12.0-16.0); Immature Granulocytes % 2.4 %; Immature Granulocytes Absolute 0.24 #; Lymphocytes # 1.7 10*3/uL (1.4-4.0); Lymphocytes % 16.9 % (21.3-54.2); Mean Corpuscular HGB Conc 31.2 GM/DL (32-36); Mean Platelet Volume 9.3 FL (9.6-12.0); Monocytes # 0.4 10*3/uL (0.11-0.8); NRBC # 0.04 10*3/uL; Neutrophils % 70.9 % (38.7-73.9); Platelet Count 238 T/CUMM (130-400); Red Blood Count 3.36 MC/CUMM (3.8-5.5); Red Cell Distribution Width 16.5 % (9.3-17.3); White Blood Count 9.9 T/CUMM (4-12)
[2022-04-26] MEDS ORDERED: NEOMYCIN/POLYMYXIN IRRIG SOLN 1 ML AMP BLADDERIRR ONE (08:12)
[2022-04-26 08:27] LABS: Calcium 8.8 MG/DL (8.5-10.1); Osmolality,Calculated 289.6 MOS/KG (273-304); Potassium 3.8 MMOL/L (3.5-5.1)
[2022-04-26] MEDS: CEFEPIME 1,000 MG in SODIUM CHLORIDE 0.9% 100 ML IV SCH (08:40)
[2022-04-26] MEDS: SODIUM CHLOR 0.9% KCL 20 MEQ 20 MEQ/1,000 ML BAG IV SCH (09:20)
[2022-04-26] MEDS ORDERED: fentaNYL 100 MCG/2 ML VIAL ONE (10:17)
[2022-04-26] MEDS ORDERED: LIDOCAINE 2% 5 ML VIAL ONE (10:47)
[2022-04-26] MEDS ORDERED: propofoL 200 MG/20 ML VIAL IV ONE (10:47)
[2022-04-26] MEDS ORDERED: SEVOFLURANE 1 UNIT/15 MINUTE INH ONE (10:47)
[2022-04-26] MEDS ORDERED: ONDANSETRON 4 MG/2 ML VIAL ONE (10:47)
[2022-04-26] MEDS ORDERED: PHENYLEPHRINE 1 MG/10 ML SYRINGE IV ONE (11:16)
[2022-04-26] MEDS: RASAGILINE 0.5 MG TABLET PO SCH (13:16)
[2022-04-26] MEDS: ESCITALOPRAM 10 MG TABLET PO SCH (13:16)
[2022-04-26] MEDS: MULTIVITAMIN (CENTRUM) TABLET PO SCH (13:17)
[2022-04-26] MEDS: MONTELUKAST 10 MG TABLET PO SCH (13:17)
[2022-04-26] MEDS: FERROUS SULFATE 325 MG TABLET PO SCH ×2 (13:17→21:50)
[2022-04-26] MEDS: BACILLUS COAGULANS CAPLET PO SCH (13:17)
[2022-04-26] MEDS: CARBIDOPA/LEVODOPA 25-100 MG TABLET PO SCH ×3 (13:17→21:50)
[2022-04-26] MEDS: DOCUSATE SODIUM 100 MG CAPSULE PO SCH ×2 (13:17→21:50)
[2022-04-26] MEDS: DILTIAZEM CD 240 MG CAPSULE PO SCH (13:18)
[2022-04-26] MEDS: PANTOPRAZOLE 40 MG VIAL IV SCH (13:18)
[2022-04-26] MEDS: PRAMIPEXOLE 1 MG TABLET PO SCH ×3 (13:18→21:50)
[2022-04-26] MEDS: clonazePAM 0.5 MG TABLET PO SCH ×2 (13:18→21:50)
[2022-04-26] MEDS: sitaGLIPtin 25 MG TABLET PO SCH (16:19)
[2022-04-26] MEDS: ENOXAPARIN 30 MG/0.3 ML SYRINGE SUBCUT SCH (21:50)
[2022-04-26] MEDS: MELATONIN 3 MG TABLET PO SCH (21:50)
[2022-04-26] MEDS: ATORVASTATIN 20 MG TABLET PO SCH (21:50)
[2022-04-27 05:43] LABS: Basophils # 0.1 10*3/uL (0.0-0.2); Basophils % 0.6 % (0.0-0.8); Eosinophils # 0.3 10*3/uL (0.0-0.87); Eosinophils % 3.2 % (0.00-10.9); Hematocrit 26.7 VOL% (35.7-47.0); Hemoglobin 8.1 GM/DL (12.0-16.0); Immature Granulocytes % 1.9 %; Immature Granulocytes Absolute 0.19 #; Lymphocytes # 1.6 10*3/uL (1.4-4.0); Lymphocytes % 16.3 % (21.3-54.2); Mean Corpuscular HGB Conc 30.3 GM/DL (32-36); Mean Corpuscular Volume 85.6 FL (87-102); Mean Platelet Volume 9.4 FL (9.6-12.0); Monocytes # 0.5 10*3/uL (0.11-0.8); Monocytes % 4.7 % (1.7-12.7); NRBC # 0.02 10*3/uL; Neutrophils % 73.3 % (38.7-73.9); Platelet Count 238 T/CUMM (130-400); Red Blood Count 3.12 MC/CUMM (3.8-5.5); Red Cell Distribution Width 17.2 % (9.3-17.3)
[2022-04-27 05:52] LABS: Calcium 8.9 MG/DL (8.5-10.1); Osmolality,Calculated 285.8 MOS/KG (273-304); Potassium 3.9 MMOL/L (3.5-5.1)
[2022-04-27] MEDS: SODIUM CHLOR 0.9% KCL 20 MEQ 20 MEQ/1,000 ML BAG IV SCH ×3 (08:05→22:00)
[2022-04-27] MEDS: RASAGILINE 0.5 MG TABLET PO SCH (11:02)
[2022-04-27] MEDS: CARBIDOPA/LEVODOPA 25-100 MG TABLET PO SCH ×3 (11:03→21:59)
[2022-04-27] MEDS: sitaGLIPtin 25 MG TABLET PO SCH (11:03)
[2022-04-27] MEDS: PRAMIPEXOLE 1 MG TABLET PO SCH ×3 (11:03→22:00)
[2022-04-27] MEDS: MONTELUKAST 10 MG TABLET PO SCH (11:03)
[2022-04-27] MEDS: MULTIVITAMIN (CENTRUM) TABLET PO SCH (11:03)
[2022-04-27] MEDS: ESCITALOPRAM 10 MG TABLET PO SCH (11:03)
[2022-04-27] MEDS: DOCUSATE SODIUM 100 MG CAPSULE PO SCH ×2 (11:03→22:00)
[2022-04-27] MEDS: PANTOPRAZOLE 40 MG VIAL IV SCH (11:03)
[2022-04-27] MEDS: FERROUS SULFATE 325 MG TABLET PO SCH ×2 (11:03→21:59)
[2022-04-27] MEDS: BACILLUS COAGULANS CAPLET PO SCH (11:03)
[2022-04-27] MEDS: clonazePAM 0.5 MG TABLET PO SCH ×2 (11:03→21:58)
[2022-04-27] MEDS: DILTIAZEM CD 240 MG CAPSULE PO SCH (11:03)
[2022-04-27] MEDS: MELATONIN 3 MG TABLET PO SCH (21:59)
[2022-04-27] MEDS: ATORVASTATIN 20 MG TABLET PO SCH (21:59)
[2022-04-27] MEDS: NITROFURANTOIN MACRO/MONO 100 MG CAPSULE PO SCH (21:59)
[2022-04-27] MEDS: ENOXAPARIN 30 MG/0.3 ML SYRINGE SUBCUT SCH (22:00)
[2022-04-28] MEDS: SODIUM CHLOR 0.9% KCL 20 MEQ 20 MEQ/1,000 ML BAG IV SCH (06:00)
[2022-04-28] MEDS: MULTIVITAMIN (CENTRUM) TABLET PO SCH (09:16)
[2022-04-28] MEDS: CARBIDOPA/LEVODOPA 25-100 MG TABLET PO SCH (09:16)
[2022-04-28] MEDS: BACILLUS COAGULANS CAPLET PO SCH (09:16)
[2022-04-28] MEDS: RASAGILINE 0.5 MG TABLET PO SCH (09:16)
[2022-04-28] MEDS: DOCUSATE SODIUM 100 MG CAPSULE PO SCH (09:17)
[2022-04-28] MEDS: DILTIAZEM CD 240 MG CAPSULE PO SCH (09:17)
[2022-04-28] MEDS: clonazePAM 0.5 MG TABLET PO SCH (09:17)
[2022-04-28] MEDS: ESCITALOPRAM 10 MG TABLET PO SCH (09:17)
[2022-04-28] MEDS: sitaGLIPtin 25 MG TABLET PO SCH (09:17)
[2022-04-28] MEDS: NITROFURANTOIN MACRO/MONO 100 MG CAPSULE PO SCH (09:17)
[2022-04-28] MEDS: MONTELUKAST 10 MG TABLET PO SCH (09:17)
[2022-04-28] MEDS: PANTOPRAZOLE 40 MG VIAL IV SCH (09:17)
[2022-04-28] MEDS: PRAMIPEXOLE 1 MG TABLET PO SCH (09:17)
[2022-04-28] MEDS: FERROUS SULFATE 325 MG TABLET PO SCH (09:17)
[2022-04-28 12:02] VITALS: BP 130/91
== END 2022-04-28 14:23 | DRG 690 ==
LOC: N.ED 09:56 → N.2E 11:47
PROVIDERS: ADMIT Family Medicine; ATTEND Family Medicine